=== PATIENT | male | born 1995 | race Caucasian/White ===

== ENCOUNTER → 2022-02-07 | Day surgery (SDC) | payer OTHER ==
[~2022-02-07] MED LIST: HYDROCODON-ACE1 EAC2 PO; LOVENOX40 MG/0.4 SQ
== END | disposition home or self-care (01) ==
LOC: OR 05:24
DX: S83.281A Other tear of lateral meniscus, current injury, right knee, initial encounter (principal); M22.41 Chondromalacia patellae, right knee; X58.XXXA Exposure to other specified factors, initial encounter
CPT/HCPCS: J0171; J0690; J1100; J1885; J2001; J2250; J2370; J2405; J2704; J3010